=== PATIENT | male | born 1985 | race Caucasian/White ===

== ENCOUNTER 2017-03-06 08:53 | Emergency (ER) | payer OTHER ==
[2017-03-06 08:59] VITALS: BP 165/93; PULSE 67; TEMP 98; BMI 22.5
[2017-03-06] MEDS ORDERED: IBUPROFEN 600 MG TABLET (FP) PO ONE (09:45)
[2017-03-06] MEDS ORDERED: IBUPROFEN 400 MG TABLET (FP) PO ONE (09:49)
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
== END 2017-03-06 11:12 | disposition home or self-care (01) ==
LOC: JERFT 08:53
DX: M54.5 Low back pain (principal); M25.551 Pain in right hip; V43.52XA Car driver injured in collision with other type car in traffic accident, initial encounter; Y92.414 Local residential or business street as the place of occurrence of the external cause; Y93.89 Activity, other specified
CPT/HCPCS: 73523-TC; 99281-25

== ENCOUNTER 2017-06-24 12:13 | Emergency (ER) | payer OTHER ==
[2017-06-24 12:26] VITALS: BP 123/100; PULSE 69; TEMP 98; BMI 21.9
--- NOTE | 2017-06-24 13:06 | PDOC ---
History of Present Illness - General Chief Complaint: Back Pain Stated Complaint: BACK INJURY Time Seen by Provider: 06/24/17 12:46 History Source: Patient Exam Limitations: No Limitations - History of Present Illness Initial Comments: 06/24/17 13:07 My chief complain: lower back pain History of present illness: Patient is a 32-year-old male with a history of patient having a spondylitic defect/stress fracture in his lumbar spine may years ago, pt. is here today after falling last night at work slipping on a wet floor and landing on his back. Patient denies any head injury or any neck injury. Patient denies any loss of consciousness. Patient reports that he has right sacral area pain with lying down that is currently a 7 out of 10 aching in nature. Patient denies any pain with walking course sitting or standing. Patient denies any radiation of pain down the legs or any saddle anesthesia or incontinency. Patient reports that he feels a raised area to the right sacrum. He denies any weakness or numbness of legs. Patient denies any other injuries. Patient reports that he slipped and fall at work last night was witnessed however he did not fill out an accident report away. She took Advil prior to arrival here approximately one hour ago. 06/24/17 13:14 06/24/17 13:58 Occurred: reports: yesterday Severity: reports: moderate Pain Location: reports: back (rt. sacral area) Method of Injury: Yes: fall Modifying Factors: improves with: other (not lying on back ) Loss of Consciousness: no loss of consciousness Associated Symptoms (Fall): denies symptoms Past History - Past Medical History Allergies/Adverse Reactions: Allergies Allergy/AdvReac Type Severity Reaction Status Date / Time No Known Allergies Allergy Verified 06/24/17 12:21 Home Medications: Ambulatory Orders Naproxen [Naprosyn -] 500 mg PO BID PRN #14 tablet 06/24/17 Other medical history: STRESS FRACTURE IN THE LOWER BACK - Psycho/Social/Smoking Cessation Hx Suicidal Ideation: No Smoking History: Never smoked Trauma Specific PMHX - Complaint Specific PMHX Arthritis: No Back Injury: No Neck Injury: No Hx Sacro Iliac Joint Dysfunction: No Review of Systems - Review of Systems Able to Perform ROS?: Yes Constitutional: No: Symptoms Reported HEENTM: No: Symptoms Reported Respiratory: No: Symptoms reported Cardiac (ROS): No: Symptoms Reported ABD/GI: No: Symptoms Reported : No: Symptoms Reported Musculoskeletal: Yes: Back Pain (rt. sacral area), Joint Pain (rt. sacral area') , Joint Swelling (rt. sacral area) Integumentary: No: Symptoms Reported Neurological: No: Symptoms reported *Physical Exam - Vital Signs Last Vital Signs Temp Pulse Resp BP Pulse Ox 98 F 69 19 123/100 96 06/24/17 12:21 06/24/17 12:21 06/24/17 12:21 06/24/17 12:21 06/24/17 12:21 - Physical Exam General Appearance: Yes: Appropriately Dressed Neck: negative: Tender, Trachea midline, Decreased range of motion, Lymphadenopathy (R), Lymphadenopathy (L), Rigidity, Tender lateral, Tender midline Respiratory/Chest: positive: Lungs Clear, Normal Breath Sounds. negative: Chest Tender, Respiratory Distress Cardiovascular: positive: Regular Rhythm, Regular Rate, S1, S2 Musculoskeletal: positive: Normal Inspection, Other (tenderness rt. sacrum). negative: CVA Tenderness, CVA Tenderness (R), CVA Tenderness (L), Decreased Range of Motion (ast waist full range of motion), Vertebral Tenderness Extremity: positive: Normal Capillary Refill, Normal Inspection, Normal Range of Motion Integumentary: positive: Normal Color Neurologic: positive: Fully Oriented, Alert, Normal Response, Motor Strength 5/ 5 (legs/arms), Respond to painful stimul. negative: Responsive, Numbness, Sensory Deficit (b/l ) Deep Tendon Reflexes: Knee (L): 4+, Knee (R): 4+ Medical Decision Making - Medical Decision Making 06/24/17 13:13 Patient is a 32-year-old male with a history of a spondylitic defect in his lumbar spine/stress fracture many years ago here today after falling last night at work slipping on a wet floor and landing on his back. Patient denies any head injury or any neck injury. Patient denies any loss of consciousness. Patient reports that he has right sacral area pain with lying down that is currently a 7 out of 10 aching in nature. Patient denies any pain with walking course sitting or standing. Patient denies any radiation of pain down the legs or any saddle anesthesia or incontinency. Patient reports that he feels a raised area to the right sacrum. She denies any weakness or numbness of legs. Patient denies any other injuries. Patient reports that slip and fall at work last night was witnessed however he did not fill out an accident report away. He took Advil prior to arrival here approximately one hour ago. r/o acute parish injury lumbar/sacral spine PLAN: xray lumbar sacral spine there may be L5 spondylolysis. There may be L5 spondylolisthesis interverebral disc space is preserved. no acute pathology, correlation no tenderness along L5, per Dr. Flores Naprosyn 500 mg bid prn pain # 14 tabs ortho referral 06/24/17 13:15 06/24/17 13:54 06/24/17 13:58 06/24/17 13:59 *DC/Admit/Observation/Transfer Diagnosis at time of Disposition: Sacral back pain - Discharge Dispostion Disposition: HOME Condition at time of disposition: Stable - Prescriptions Prescriptions: Naproxen [Naprosyn -] 500 mg PO BID PRN #14 tablet PRN Reason: Pain - Referrals Referrals: Thalia Maria MD [Primary Care Provider] - Joe Rodriguez MD [Staff Physician] - - Patient Instructions Additional Instructions: Follow-up with orthopedist tomorrow for further evaluation avoid any strenuous activities or exercise or fast turning movements at your waste Return to emergency room if any numbness of your legs or or private area or any loss of control of bowel movements or urine or worsening pain Patient voiced understanding of discharge instructions and all questions were answered - Post Discharge Activity Work/School Note: Back to Work
== END 2017-06-24 14:10 | disposition home or self-care (01) ==
LOC: JERFT 12:13
DX: M53.3 Sacrococcygeal disorders, not elsewhere classified (principal)
CPT/HCPCS: 72100-TC; 99281-25

== ENCOUNTER 2017-07-06 15:42 | Emergency (ER) | payer OTHER ==
[2017-07-06 15:48] VITALS: BP 123/72; PULSE 68; TEMP 98.1; BMI 21.9
[2017-07-06] MEDS ORDERED: FAMOTIDINE 20 MG/50 ML IVPB 50 ML IVPB ONE ×2 (16:17→16:23)
[2017-07-06] MEDS ORDERED: methylPREDNISolone NA SUCC 125 MG/2 ML VIAL IVPB ONE (16:22)
[2017-07-06] MEDS ORDERED: methylPREDNISolone NA SUCC 125 MG/2 ML VIAL ONE (16:34)
--- NOTE | 2017-07-06 16:34 | PDOC ---
History of Present Illness - General Chief Complaint: Allergic Reaction Stated Complaint: ALLERGIC RXN Time Seen by Provider: 07/06/17 16:04 History Source: Patient - History of Present Illness Timing/Duration: other (last night) Severity: severe Associated Symptoms: reports: cough. denies: shortness of breath Past History - Past Medical History Allergies/Adverse Reactions: Allergies Allergy/AdvReac Type Severity Reaction Status Date / Time No Known Allergies Allergy Verified 07/06/17 15:43 Home Medications: Ambulatory Orders Diphenhydramine HCl [Benadryl -] 25 mg PO Q6H #28 capsule 07/06/17 Epinephrine (Epi-Pen 0.3MG) [Epipen 0.3MG -] 0.3 mg IM ASDIR #2 pens 07/06/17 Famotidine [Pepcid] 20 mg PO DAILY #7 tablet 07/06/17 Prednisone [Deltasone -] 40 mg PO DAILY #8 tablet 07/06/17 Other medical history: none - Psycho/Social/Smoking Cessation Hx Anxiety: No Suicidal Ideation: No Smoking History: Never smoked Have you smoked in the past 12 months: No Information on smoking cessation initiated: No Hx Alcohol Use: No Drug/Substance Use Hx: No Substance Use Type: None Review of Systems - Review of Systems Constitutional: No: Chills, Fever Respiratory: Yes: Cough. No: Shortness of Breath, Stridor, Wheezing Integumentary: No: Pruritus, Rash *Physical Exam - Vital Signs Last Vital Signs Temp Pulse Resp BP Pulse Ox 98.1 F 68 18 123/72 100 07/06/17 15:45 07/06/17 15:45 07/06/17 15:45 07/06/17 15:45 07/06/17 15:45 - Physical Exam General Appearance: Yes: Appropriately Dressed. No: Apparent Distress HEENT: positive: Normal Voice, Other (no tongue swelling, oropharynx clear) Neck: positive: Supple. negative: Stridor Respiratory/Chest: positive: Lungs Clear, Normal Breath Sounds. negative: Respiratory Distress Integumentary: positive: Dry, Warm, Other (significant periorbital edema b/l, no erythema or tenderness). negative: Hives Neurologic: positive: Fully Oriented, Alert, Normal Mood/Affect Medical Decision Making - Medical Decision Making 07/06/17 16:34 32-year-old male, no significant history, and denies any drug or food allergies , here with significant b/l tierra-orbital edema. 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 Patient denies tongue swelling, voice changes or shortness of breath. States his supervisor opening and picking gave him claritin last night and states symptoms mildly improved. States this a.m. he took a Benadryl at approximately 8 AM, but still continues to have significant facial swelling, so decided to come in to ED for evaluation. Patient denies any history of similar episode in the past and no history of anaphylaxis. Denies any rachel medication or other obvious inciting agents See exam Allergic rxn w/ significant b/l tierra-orbital edema No resp sxs, voice changes, tongue swelling or stridor Source unclear at this time-no new meds/obvious inciting agent No h/o anaphylaxis -benadryl -steroid -pepcid -period of obs in ED 07/06/17 16:51 07/06/17 18:29 After ~3 hrs in ED, tierra-orbital edema significantly improved and pt remained stable in ED and never developed any resp symptoms. Feels safe going home w/ meds, includig epipen. Reasons to return d/w pt. To f/u with PMD *DC/Admit/Observation/Transfer Diagnosis at time of Disposition: Allergic reaction Qualifiers: Encounter type: initial encounter Qualified Code(s): T78.40XA - Allergy, unspecified, initial encounter - Discharge Dispostion Disposition: HOME Condition at time of disposition: Improved - Prescriptions Prescriptions: Diphenhydramine HCl [Benadryl -] 25 mg PO Q6H #28 capsule Prednisone [Deltasone -] 40 mg PO DAILY #8 tablet Epinephrine (Epi-Pen 0.3MG) [Epipen 0.3MG -] 0.3 mg IM ASDIR #2 pens Famotidine [Pepcid] 20 mg PO DAILY #7 tablet - Patient Instructions Printed Discharge Instructions: DI for General Allergic Reactions Additional Instructions: The cause of your allergic reaction is unclear at this time, but with medication and time, symptoms should improve. Return for worsening of symptoms
== END 2017-07-06 18:33 | disposition home or self-care (01) ==
LOC: JERFT 15:42
PROC: 3E0333Z Introduction of Anti-inflammatory into Peripheral Vein, Percutaneous Approach (ICD-10-PCS; principal; 2017-07-06)
PROC: 3E033GC Introduction of Other Therapeutic Substance into Peripheral Vein, Percutaneous Approach (ICD-10-PCS; 2017-07-06)
DX: T78.40XA Allergy, unspecified, initial encounter (principal); X58.XXXA Exposure to other specified factors, initial encounter
CPT/HCPCS: 99281-25